=== PATIENT | male | born 1935 | race Caucasian/White ===

== ENCOUNTER 2019-10-08 10:56 | Emergency (ER) | payer OTHER, MEDICARE ==
[2019-10-08 11:08] VITALS: TEMP 98; BMI 26.2
--- NOTE | 2019-10-08 11:18 | PDOC ---
History of Present Illness - General Chief Complaint: Injury Stated Complaint: FALL Time Seen by Provider: 10/08/19 11:09 - History of Present Illness Initial Comments: 10/08/19 12:01 84 y/o F hx of HTN, pacemaker for AV block, left hip replacement 07/14 presents to the ER from physical rehabilitation after a fall during physical therapy. he tripped over his laces and fell backward hitting the back of his head on carpeted floor. There was no preceding lighheadedness or dizziness and there was no LOC afterwards. he was been unable to ambulate after the incident. and "describes his left knee as buckling under him. He denies any pain, nausea, vomiting, headache, pain in his hip. 10/08/19 12:11 10/08/19 12:35 Past History - Past Medical History Allergies/Adverse Reactions: Allergies Allergy/AdvReac Type Severity Reaction Status Date / Time No Known Allergies Allergy Verified 10/08/19 11:01 Home Medications: Ambulatory Orders Allopurinol [Zyloprim -] 300 mg PO DAILY 10/08/19 Aspirin [Aspirin EC] 81 mg PO DAILY 10/08/19 Losartan Potassium [Cozaar -] 50 mg PO DAILY 10/08/19 COPD: No HTN: Yes Other medical history: spinal stenosis - Surgical History Abdominal Surgery: Yes (hernia repair) Cardiac Surgery: Yes (pacemaker) - Psycho Social/Smoking Cessation Hx Smoking History: Never smoked Review of Systems - Review of Systems Constitutional: No: Chills, Fever HEENTM: No: Eye Pain, Blurred Vision Respiratory: No: Cough, Shortness of Breath Cardiac (ROS): No: Chest Pain, Lightheadedness ABD/GI: No: Nausea, Vomiting : No: Burning, Dysuria Musculoskeletal: Yes: Joint Pain. No: Back Pain Integumentary: No: Change in Color, Lumps Neurological: Yes: Unsteady Gait. No: Headache *Physical Exam - Vital Signs Last Vital Signs Temp Pulse Resp BP Pulse Ox 98 F 68 16 162/64 99 10/08/19 11:07 10/08/19 11:07 10/08/19 11:07 10/08/19 11:07 10/08/19 11:07 - Physical Exam 10/08/19 12:36 PE: GENERAL: Awake, alert, and fully oriented, in no acute distress HEAD: No signs of trauma, normocephalic, atraumatic EYES: EOMI, sclera anicteric, conjunctiva clear ENT: Auricles normal inspection, hearing grossly normal, nares patent, oropharynx clear without exudates. Moist mucosa NECK: Normal ROM, supple, no lymphadenopathy, JVD, or masses LUNGS: No distress, speaks full sentences, clear to auscultation bilaterally HEART: Regular rate and rhythm, normal S1 and S2, no murmurs, rubs or gallops, ABDOMEN: Soft, nontender, normoactive bowel sounds. No guarding, no rebound. No masses EXTREMITIES : left knee swollen. TTP of medial knee. no patellar tenderness. decreased ROM on the left on straight leg raise. Able to bend at the knee.peripheral pulses normal and equal bilaterally. NEUROLOGICAL: Cranial nerves II through XII grossly intact. Normal speech, no focal sensorimotor deficits SKIN: Warm, Dry, normal turgor, no rashes or lesions noted Medical Decision Making - Medical Decision Making 10/08/19 12:36 84 y/o F hx of HTN, pacemaker for AV block, left hip replacement 07/14 presents to the ER from physical rehabilitation after a fall during physical therapy. head ct and c-spine x-ray left knee 10/08/19 13:39 Knee X-ray no acute fracture is seen intact patella. enthesophyte at the site of insertion of quadriceps tendon suprapatellar soft tissue swelling suprapatellar joint effusion can't be entirely exclude. 10/08/19 13:39 Hip and pelvis no acute bony abnormalities 10/08/19 15:08 CT Head and C-spine Discharge - Discharge Information Problems reviewed: Yes Clinical Impression/Diagnosis: Enthesopathy of knee Fall Qualifiers: Encounter type: initial encounter Qualified Code(s): W19.XXXA - Unspecified fall, initial encounter Condition: Stable Disposition: HOME - Admission No - Follow up/Referral Referrals: Fletcher Hartman [Primary Care Provider] - Fidel Palomo MD [Staff Physician] - Jonathan Dennis MD [Staff Physician] - Jose Monroy MD [Staff Physician] - Osiel Dias MD [Staff Physician] - Osmin Barraza DO [Staff Physician] - - Patient Discharge Instructions Patient Printed Discharge Instructions: DI for Knee Effusion, How to Use a Knee Immobilizer Additional Instructions: You were seen in the ER after a fall your x-rays did not show any fractures Your care is not complete until you see an orthopedic doctor You should follow up in the next few days Use the knee immobilizer and crutches that have been provided to you as directed. - Post Discharge Activity
--- NOTE | 2019-10-08 11:49 | PDOC ---
Attending Attestation - Resident Resident Name: Mariajose Long - ED Attending Attestation I have performed the following: I have examined & evaluated the patient, The case was reviewed & discussed with the resident, I agree w/resident's findings & plan - HPI HPI: 10/08/19 11:46 84 YOM with h/o HTN, heart block s/p PPM, arthritis s/p recent THR presenting with witnessed fall at rehab today. fall today at rehab, fell back and hit head, no LOC no n/v unable to ambulate after the fall felt his left leg give out +left knee swelling, only mild pain, unable to bear weight 10/08/19 13:03 - Physicial Exam PE: 10/08/19 11:47 Physical exam: General: GCS 15 - NAD, well appearing HEENT: NCAT, PERRL, EOMI. Airway intact. No battles sign or raccoon eyes. No e/ o ocular. Dentition intact. No e/o septal hematoma, nasal bridge stable. Neck: neck supple, no midline C spine tenderness or deformity, ROM intact. No anterior mass or crepitus, trachea midline. Resp: Lungs clear bilaterally Chest: no clavicle or chest wall tenderness or crepitus CVS: RRR, 2+ pulses throughout. Abdomen: Abdomen soft, nontender, nondistended. Back: Back nontender, no midline spinal tenderness along cervical/thoracic/ lumbar spine, FROM, no stepoffs. MSK: Pelvis stable, Extremities symmetric, +left knee effusion, no patella or knee tenderness, ROM limited 2/2 swelling. no skin discoloration or changes. no joint laxity with flexion/extension, and rotation. Neuro: Alert, oriented appropriately. CN II-XII grossly symmetric and intact. no focal neuro deficits. Sensation and strength intact throughout. Gait normal/ stable. Skin: intact, normal color and well perfused. 10/08/19 13:03 - Medical Decision Making 10/08/19 11:48 Vital Signs Temp Pulse Resp BP Pulse Ox 98 F 68 16 162/64 99 10/08/19 11:07 10/08/19 11:07 10/08/19 11:07 10/08/19 11:07 10/08/19 11:07 Trauma ddx: ICH, SDH/ EDH, C spine injury/strain, extremity sprain/fracture, pelvis fracture. MSK contusion, msk spasms. Rib fractures. Clinically doubt Intra abdominal and thoracic injuries/bleed Trauma Neg: No evidence of skull fracture, intracranial bleed, dental trauma, cervical, thoracic, or vertebral fracture or subluxation, no suspicion of thoracic, abdominal, pelvic or extremity injury by exam. CT head and C-spine to evaluate for intracranial head bleed/injury/bony fractures given the fall and impact. Negative for ICH/head injury/cervical fx, degenerative changes noted Status post total right hip replacement with supporting screw, normal alignment , no fractures of the pelvis or the hip. No fractures of the knee is also identified. She he does have soft tissue swelling and knee joint effusion could be underlying ligamental tear. No patella fracture is noted, normal alignment of the knee, no distal femur or proximal tibia/fibula fracture, arthritic changes of the patella is noted, no evidence of dislocation. Suprapatellar soft tissue swelling, quadriceps tendon with enthesophyte, Knee immobilizer. Crutches/walker for walking assistance Orthopedics follow-up provided for his left knee sprain and joint effusion, referrals have been provided. no indication for further imaging here Pt to be discharged in stable condition. Patient and family made aware of clinical impression, treatment recommendations and disposition plan, return precautions discussed (including but not limited to new or persistent/worsening symptoms, pain, fevers, or signs of infection, chest pain, respiratory distress , inability to tolerate oral intake, dehydration, syncope, or neurologic changes ). Follow up with internet security specialist as recommended, follow up information provided, take medications as instructed for duration of time. continue with supportive care, avoid triggers and precipitants. All questions answered to patient's satisfaction and expressed understanding and comfort with this. At the time of discharge, the patient is alert, clinically improved, tolerating po and verbalizes understanding of instructions, satisfied with the care received and felt comfortable with the plan. Patient does not suffer from an acute life- threatening medical condition at this time and is safe for outpatient follow- up. 10/08/19 13:43 10/08/19 16:12 10/08/19 16:45
[2019-10-08 15:57] VITALS: BP 141/68; PULSE 85
== END 2019-10-08 16:12 | disposition home or self-care (01) ==
LOC: JER 10:56
DX: M76.9 Unspecified enthesopathy, lower limb, excluding foot (principal); I10 Essential (primary) hypertension; Z95.0 Presence of cardiac pacemaker; I44.30 Unspecified atrioventricular block; Z96.642 Presence of left artificial hip joint; W18.09XA Striking against other object with subsequent fall, initial encounter; Y93.89 Activity, other specified; Y92.531 Health care provider office as the place of occurrence of the external cause
CPT/HCPCS: 70450-TC; 72125-TC; 73523-TC-FY; 73564-TC-LT-FY; 99282-25